=== PATIENT | male | born 1980 | race African-American/Black ===

== ENCOUNTER 2021-09-17 13:34 | Emergency (ER) | payer OTHER ==
[2021-09-17 14:03] VITALS: BP 143/89; PULSE 98; TEMP 98.5; BMI 33.9
[2021-09-17] MEDS ORDERED: IBUPROFEN 600 MG TABLET (FP) PO ONE (14:06)
== END 2021-09-17 15:25 | disposition home or self-care (01) ==
LOC: FER 13:34
DX: S39.012A Strain of muscle, fascia and tendon of lower back, initial encounter (principal); V49.40XA Driver injured in collision with unspecified motor vehicles in traffic accident, initial encounter
CPT/HCPCS: 70450-TC; 72125-TC; 99284-25